=== PATIENT | female | born 1995 | race Caucasian/White ===

== ENCOUNTER 2021-05-01 19:32 | Emergency (ER) | payer OTHER ==
[2021-05-01] MEDS ORDERED: Sodium Chloride 0.9% 1,000 ML IV ONE (20:11)
[2021-05-01] MEDS ORDERED: diphenhydrAMINE 50 MG/ML SDV IVPUSH ONE (20:12)
[2021-05-01] MEDS ORDERED: Metoclopramide 10 MG/2 ML SDV IVPUSH ONE (20:12)
[2021-05-01] MEDS ORDERED: Ketorolac 30 MG/ML SDV IVPUSH ONE (20:12)
--- NOTE | 2021-05-01 20:18 | EDM.PDOC ---
ED HPI GENERAL MEDICAL PROBLEM - General Chief Complaint: Headache Stated Complaint: MIGRAINE,NAUSEAS Time Seen by Provider: 05/01/21 20:04 Source of Information: Reports: Patient History Limitations: Reports: No Limitations - History of Present Illness INITIAL COMMENTS - FREE TEXT/NARRATIVE: 25-year-old female presents the emergency department today with complaints of a migraine headache. Per the patient she does have history of migraines however she has never sought medical treatment for them. She states that approximately 4:00 today she developed a migraine headache. She felt it was coming on so did take some ibuprofen however this is not helped she also tried peppermint oil and ice packs. She states that this is the worst headache she has ever had in her life. Headache pain is located in her left frontal/parietal lobe. She states she does have photophobia and phonophobia. She also states she has some blurred vision associated with that. She denies any recent fever, chills, diarrhea or abdominal pain. She states she has been nauseated and has vomited once since being in the emergency department. She denies any recent cough shortness of breath or any other respiratory type symptoms. She is not a smoker. She does take oral contraceptives. 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 Headache Pain Score (Numeric/FACES): 10 - Related Data Allergies Allergy/AdvReac Type Severity Reaction Status Date / Time Sulfa (Sulfonamide Allergy Rash Verified 05/01/21 19:40 Antibiotics) Home Meds: Home Meds Acetaminophen [Tylenol Extra Strength] 500 mg PO Q4H PRN 04/21/19 [History] Levonorgestrel/Ethin.estradiol [Falmina-28 Tablet] 1 tab PO ASDIRECTED 05/01/21 [History] Multivitamin [One-Daily Multi-Vitamin] 1 each PO DAILY 05/01/21 [History] Past Medical History HEENT History: Reports: Impaired Vision Cardiovascular History: Reports: None Respiratory History: Reports: None Gastrointestinal History: Reports: Cholelithiasis, Other (See Below) Other Gastrointestinal History: nausea, vomiting Genitourinary History: Reports: Other (See Below) Other Genitourinary History: dysuria, urgency 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: Other (See Below) Other HUMAN RESOURCES OPERATIONS SPECIALIST History: abnormal pap, HX HPV Musculoskeletal History: Reports: None Neurological History: Reports: None Psychiatric History: Reports: None Endocrine/Metabolic History: Reports: None Hematologic History: Reports: None Immunologic History: Reports: None Oncologic (Cancer) History: Reports: None Dermatologic History: Reports: None - Infectious Disease History Infectious Disease History: Reports: Human Papilloma Virus (HPV) - Past Surgical History Head Surgeries/Procedures: Reports: None HEENT Surgical History: Reports: Adenoidectomy, Tonsillectomy Cardiovascular Surgical History: Reports: None Respiratory Surgical History: Reports: None GI Surgical History: Reports: None Female Surgical History: Reports: Section Endocrine Surgical History: Reports: None Neurological Surgical History: Reports: None Musculoskeletal Surgical History: Reports: None Oncologic Surgical History: Reports: None Dermatological Surgical History: Reports: None Social & Family History - Family History Family Medical History: No Pertinent Family History Cardiac: Reports: Other (See Below) Endocrine/Metabolic: Reports: Diabetes, Type I - Tobacco Use Tobacco Use Status *Q: Never Tobacco User - Caffeine Use Caffeine Use: Reports: Coffee, Soda - Recreational Drug Use Recreational Drug Use: No ED ROS GENERAL - Review of Systems Review Of Systems: Comprehensive ROS is negative, except as noted in HPI. - Physical Exam Exam: See Below Exam Limited By: No Limitations General Appearance: Alert, WD/WN, Moderate Distress Eye Exam: Bilateral Eye: EOMI, PERRL Ears: Normal External Exam, Hearing Grossly Normal Nose: Normal Inspection Throat/Mouth: Normal Inspection, Normal Lips, Normal Voice, No Airway Compromise Head Exam: Atraumatic, Normocephalic Neck: Normal Inspection, Supple Respiratory/Chest: No Respiratory Distress, Lungs Clear, Normal Breath Sounds, No Accessory Muscle Use, Chest Non-Tender Cardiovascular: Normal Peripheral Pulses, Regular Rate, Rhythm, No Edema, No Murmur GI/Abdominal: Normal Bowel Sounds, Soft, Non-Tender, No Distention (Female) Exam: Deferred Rectal (Female) Exam: Deferred Neuro Exam (Abbreviated): Alert, Oriented, CN II-XII Intact, Normal Cognition Back Exam: Normal Inspection Extremities: Normal Inspection Psychiatric: Normal Affect, Normal Mood Skin Exam: Warm, Dry, Intact, Normal Color, No Rash Course - Vital Signs Text/Narrative:: As stated above, patient presents with left-sided parietal/frontal lobe headache pain that started around 1600 today. She describes it as the worst headache she has ever had in her life despite having history of migraine headaches. Physical exam is unremarkable. Neuro exam is unremarkable. I have elected to order a CT scan of the head. Once this is completed we will give her a liter of normal saline wide open, 30 mg of Toradol, Benadryl and Reglan to see if we can abort the headache. I have also ordered for the patient be swabbed for Covid. Last Recorded V/S: Last Vital Signs Temp 97.8 F 05/01/21 19:45 Pulse 78 05/01/21 19:45 Resp 18 05/01/21 19:45 BP 129/83 05/01/21 19:45 Pulse Ox 99 05/01/21 19:45 - Orders/Labs/Meds Labs: Laboratory Tests 05/01/21 Range/Units 20:44 SARS-CoV-2 RNA ([facility]) Negative (NEGATIVE) Meds: Medications Discontinued Medications Generic Name Dose Route Start Last Admin Trade Name Cosmeq PRN Reason Stop Dose Admin Diphenhydramine HCl 25 mg 05/01/21 20:12 05/01/21 20:40 Diphenhydramine 50 Mg/Ml Sdv IVPUSH 05/01/21 20:13 25 mg ONETIME ONE Administration Sodium Chloride 1,000 mls @ 999 mls/hr 05/01/21 20:11 05/01/21 20:40 Normal Saline IV 05/01/21 21:11 999 mls/hr ONETIME ONE Administration Ketorolac Tromethamine 30 mg 05/01/21 20:12 05/01/21 20:42 Ketorolac 30 Mg/Ml Sdv IVPUSH 05/01/21 20:13 30 mg ONETIME ONE Administration Metoclopramide HCl 5 mg 05/01/21 20:12 05/01/21 20:41 Metoclopramide 10 Mg/2 Ml Sdv IVPUSH 05/01/21 20:13 5 mg ONETIME ONE Administration - Re-Assessments/Exams Free Text/Narrative Re-Assessment/Exam: 05/01/21 20:[address] scan of the head: 1. Nothing acute is identified on noncontrast head CT study 05/01/21 22:05 Patient is Covid negative. She reports that her headache is gone. We will discharge her to home. Departure - Departure Time of Disposition: 22:07 Disposition: Home, Self-Care 01 Condition: Good Clinical Impression: Migraine - Discharge Information Instructions: Migraine Headache, [id number] Referrals: Amelia Moncada MD [Primary Care Provider] - Forms: ED Department Discharge Additional Instructions: You were seen in the emergency department with complaints of migraine headache. You stated this was the worst headache you have ever had so we did do a CT scan of your head. This was negative. While in the emergency department you were given IV fluids and medications to abort the headache and this did seem to work. You were also swabbed for Covid and this was negative. Go home and rest in a dark quiet room. Drink plenty of fluids. Follow-up with your primary care provider as needed. Sepsis Event Note (ED) - Focused Exam Vital Signs: Vital Signs Temp Pulse Resp BP Pulse Ox 05/01/21 19:45 97.8 F 78 18 129/83 99
--- NOTE | 2021-05-01 20:40 | CT ---
Head CT Technique: Multiple axial sections through the brain were obtained. Intravenous contrast was utilized. Reconstructed coronal and sagittal images were obtained. Comparison: No prior intracranial imaging is available. Findings: Ventricles along with basal cisterns and sulci over the convexities are within normal limits for the patient's age. No abnormal parenchymal densities are seen. No evidence of intracranial hemorrhage is seen. No midline shift or mass-effect is seen. Bone window settings were reviewed. Visualized paranasal sinuses and mastoid sinuses show nothing acute. No acute calvarial abnormality is appreciated. Impression: 1. Nothing acute is identified on noncontrast head CT study. Diagnostic code #1
== END 2021-05-01 22:15 | disposition home or self-care (01) ==
LOC: JD.ED 19:32
DX: G43.909 Migraine, unspecified, not intractable, without status migrainosus (principal); K21.9 Gastro-esophageal reflux disease without esophagitis; Z88.2 Allergy status to sulfonamides; Z20.822 Contact with and (suspected) exposure to COVID-19; Z79.899 Other long term (current) drug therapy
CPT/HCPCS: 70450; 87635; 96374; 96375; 99284; J1200; J1885; J2765; J7030; U0002

== ENCOUNTER 2022-07-18 12:27 | Emergency (ER) | payer OTHER ==
[2022-07-18] MEDS ORDERED: Polyethylene Glycol 3350 Powder 17 GM Packet PO ONE (14:08)
[2022-07-18] MEDS ORDERED: Lidocaine 2% 11 ML Jelly Filled Syringe MUCMEM ONE (14:14)
[2022-07-18] MEDS ORDERED: Lidocaine 2% 11 ML Jelly Filled Syringe ONE (16:03)
== END 2022-07-18 17:00 | disposition home or self-care (01) ==
LOC: JD.ED 12:27
DX: O99.612 Diseases of the digestive system complicating pregnancy, second trimester (principal); K59.09 Other constipation; Z88.2 Allergy status to sulfonamides; Z3A.17 17 weeks gestation of pregnancy
CPT/HCPCS: 99283; A9270

== ENCOUNTER 2022-12-24 03:42 | Inpatient (IN) | payer OTHER ==
[2022-12-24] MEDS ORDERED: Sodium Chloride 0.9% 10 ML Syringe FLUSH PRN (13:21)
[2022-12-24] MEDS ORDERED: Nalbuphine 10 MG/0.5 ML Syringe IVPUSH PRN (13:21)
[2022-12-24] MEDS ORDERED: Ondansetron 4 MG/2 ML SDV IVPUSH PRN (13:21)
[2022-12-24] MEDS: Lactated Ringers 1,000 ML IV SCH (14:42)
[2022-12-24] MEDS: Oxytocin/Lactated Ringers 10 UNIT/1,000 ML BAG IV SCH (14:42)
[2022-12-24] MEDS: Sodium Chloride 0.9% 10 ML Syringe FLUSH SCH (22:03)
[2022-12-24] MEDS: hydrOXYzine HCl 50 MG Tab PO SCH (22:32)
[2022-12-25] MEDS: Lactated Ringers 1,000 ML IV SCH ×3 (10:10→18:16)
[2022-12-25] MEDS: Oxytocin/Lactated Ringers 10 UNIT/1,000 ML BAG IV SCH (10:10)
[2022-12-25] MEDS ORDERED: ePHEDrine 50 MG/ML SDV IVPUSH PRN (10:52)
[2022-12-25] MEDS ORDERED: diphenhydrAMINE 50 MG/ML SDV IVPUSH PRN (10:52)
[2022-12-25] MEDS: fentaNYL 100 MCG/2 ML SDV EPIDUR PRN (16:49)
[2022-12-25] MEDS: Bupivacaine/fentaNYL/NS 100 ML Bag EPIDUR PRN (17:03)
[2022-12-25] MEDS: Sodium Chloride 0.9% 10 ML Syringe FLUSH SCH (19:38)
[2022-12-26] MEDS: Bupivacaine/fentaNYL/NS 100 ML Bag EPIDUR PRN (00:02)
[2022-12-26] MEDS: Oxytocin/Lactated Ringers 10 UNIT/1,000 ML BAG IV SCH ×2 (00:02→03:50)
[2022-12-26] MEDS ORDERED: Dexmedetomidine 200 MCG/2 ML SDV ONE (00:20)
[2022-12-26] MEDS ORDERED: Lidocaine 2% with EPINEPHrine 1:200,000 20 ML SDV ONE (00:20)
[2022-12-26] MEDS ORDERED: Sodium Bicarbonate 8.4% 50 MEQ/50 ML SDV ONE (00:20)
[2022-12-26] MEDS: fentaNYL 100 MCG/2 ML SDV EPIDUR PRN (00:30)
[2022-12-26] MEDS: Sodium Chloride 0.9% 10 ML Syringe FLUSH SCH (00:32)
[2022-12-26] MEDS: hydrOXYzine HCl 50 MG Tab PO SCH (00:32)
[2022-12-26] MEDS ORDERED: Bupivacaine 0.5% 10 ML SDV ONE (00:40)
[2022-12-26] MEDS ORDERED: Lidocaine 1% 10 ML MDV ONE (04:00)
[2022-12-26] MEDS ORDERED: Witch Hazel Medicated Pads 40/Jar TOP PRN (04:20)
[2022-12-26] MEDS ORDERED: Benzocaine/Menthol 20%-0.5% Spray 78 GM Cannister TOP PRN (04:20)
[2022-12-26] MEDS ORDERED: Methylergonovine 0.2 MG/1 ML Amp IM PRN (04:20)
[2022-12-26] MEDS: Acetaminophen 325 MG Tab PO PRN ×2 (09:43→20:24)
[2022-12-26] MEDS ORDERED: Simethicone 80 MG Tab.Chew PO PRN (13:39)
[2022-12-26] MEDS ORDERED: Simethicone 80 MG Tab.Chew PO SCH (15:00)
[2022-12-26] MEDS: Ibuprofen 600 MG Tab PO PRN ×2 (16:27→20:22)
[2022-12-27] MEDS: Ibuprofen 600 MG Tab PO PRN (08:05)
[2022-12-27] MEDS: Acetaminophen 325 MG Tab PO PRN (08:06)
== END 2022-12-27 10:21 | disposition home or self-care (01) | DRG 807 ==
LOC: JD.OB 03:42 → OBSVTOIN 12-26 03:42 → JD.OB 12-26 03:43
PROVIDERS: ADMIT Family Medicine; ATTEND Family Medicine
PROC: 10E0XZZ Delivery of Products of Conception, External Approach (ICD-10-PCS; principal; 2022-12-26)
PROC: 0KQM0ZZ Repair Perineum Muscle, Open Approach (ICD-10-PCS; 2022-12-26)
PROC: 3E033VJ Introduction of Other Hormone into Peripheral Vein, Percutaneous Approach (ICD-10-PCS; 2022-12-26)
PROC: 3E0R3BZ Introduction of Anesthetic Agent into Spinal Canal, Percutaneous Approach (ICD-10-PCS; 2022-12-26)
PROC: 00HU33Z Insertion of Infusion Device into Spinal Canal, Percutaneous Approach (ICD-10-PCS; 2022-12-26)
PROC: 10907ZC Drainage of Amniotic Fluid, Therapeutic from Products of Conception, Via Natural or Artificial Opening (ICD-10-PCS; 2022-12-26)
PROC: 10H07YZ Insertion of Other Device into Products of Conception, Via Natural or Artificial Opening (ICD-10-PCS; 2022-12-26)
DX: O48.0 Post-term pregnancy (principal); O70.1 Second degree perineal laceration during delivery; Z37.0 Single live birth; Z3A.40 40 weeks gestation of pregnancy; Z88.2 Allergy status to sulfonamides
CPT/HCPCS: 36415; 51702; 59025; 59409; 85025; 86592; 86850; 86900; 86901; A9270-GY; C1726; J2210; J2300; J2405; J2590; J3010; J3490; J7120

== ENCOUNTER 2024-02-24 11:08 | Emergency (ER) | payer BC ==
[2024-02-24 12:19] LABS: BASOPHILS PERCENT AUTO 0.3 % (0.0-1.0); EOSINOPHILS ABSOLUTE AUTO 0.2 K/mm3 (0.0-0.4); EOSINOPHILS PERCENT AUTO 1.6 % (0.0-6.0); HEMATOCRIT 35.9 % (37.0-47.0); HEMOGLOBIN 12.8 gm/dl (12.0-16.0); IMMATURE GRAN ABSOLUTE AUTO 0.06 K/mm3 (0.00-0.05); IMMATURE GRAN PERCENT AUTO 0.5 % (0.0-0.4); MEAN CORPUSCULAR HEMOGLOBIN 31.6 pg (28.0-32.0); MEAN CORPUSCULAR HGB CONC 35.7 g/dl (32.0-36.0); MEAN CORPUSCULAR VOLUME 88.6 fl (83.0-99.0); MEAN PLATELET VOLUME 9.7 fl (9.4-12.3); MONOCYTES ABSOLUTE AUTO 0.6 K/mm3 (0.0-0.8); MONOCYTES PERCENT AUTO 5.1 % (0.0-8.0); NEUTROPHILS ABSOLUTE AUTO 8.3 K/mm3 (1.8-7.7); NEUTROPHILS PERCENT AUTO 74.5 % (41.0-71.0); PLATELET COUNT,PLT 272 K/mm3 (150-400); RED BLOOD CELL COUNT 4.05 M/mm3 (4.10-5.30); WHITE BLOOD CELL COUNT,WBC 11.16 K/mm3 (3.9-11.3)
[2024-02-24] MEDS: Dextrose 5%-Lactated Ringers 1,000 ML IV SCH (12:24)
[2024-02-24 12:37] LABS: A/G RATIO 0.7 (1-2); ALBUMIN 2.8 g/dl (3.4-5.0); ANION GAP 14.9 (5-15); BILIRUBIN TOTAL 0.3 mg/dL (0.2-1.0); BUN/CREATININE RATIO 12.9 (14-18); CALCIUM 8.8 mg/dL (8.5-10.1); CREATININE 0.7 mg/dL (0.55-1.02); EST CRCL DRUG DOSING (CG) 85.94 mL/min; POTASSIUM,K 3.9 mEq/L (3.5-5.1); PROTEIN TOTAL,TP 6.9 g/dl (6.4-8.2)
[2024-02-24 13:18] LABS: APPEARANCE,URINE CLEAR (Clear); BILIRUBIN,URINE NEGATIVE (Negative); COLOR,URINE YELLOW (Yellow); GLUCOSE,URINE 1+ (Negative); KETONES,URINE NEGATIVE (Negative); LEUKOCYTE ESTERASE,URINE NEGATIVE (Negative); NITRITE,URINE NEGATIVE (Negative); OCCULT BLOOD,URINE NEGATIVE (Negative); PROTEIN,URINE NEGATIVE (Negative); UROBILINOGEN,URINE 0.2 (0.2-1.0)
[2024-02-24 13:25] LABS: BACTERIA,URINE FEW /hpf (FEW); EPITHELIAL CELLS,URINE 0-5 /hpf (0-5); MUCUS,URINE FEW /hpf (FEW); RBC,URINE 0-5 /hpf (0-5); WBC,URINE 0-5 /hpf (0-5)
[2024-02-24] MEDS: Acetaminophen 325 MG Tab PO ONE (13:48)
== END 2024-02-24 14:17 | disposition home or self-care (01) ==
LOC: JD.ED 11:08
DX: O99.891 Other specified diseases and conditions complicating pregnancy (principal); R55 Syncope and collapse; R10.32 Left lower quadrant pain; Z3A.33 33 weeks gestation of pregnancy; Z86.16 Personal history of COVID-19; Z90.49 Acquired absence of other specified parts of digestive tract; Z88.2 Allergy status to sulfonamides
CPT/HCPCS: 36415; 80053; 81001; 85025; 96360; 99284; J7121; 99283; A9270-GY

== ENCOUNTER 2024-04-12 03:52 | Inpatient (IN) | payer BC ==
[~2024-04-12 03:52] MED LIST: Bupivacaine 0.25% 10 ML SDV ONE; Sodium Chloride 0.9% 10 ML SDV ONE
[2024-04-12] MEDS ORDERED: Nalbuphine 10 MG/ML Syringe IVPUSH PRN (04:15)
[2024-04-12] MEDS ORDERED: Acetaminophen 325 MG Tab PO PRN (04:15)
[2024-04-12] MEDS ORDERED: Lidocaine 1% 50 ML MDV INJECT PRN (04:15)
[2024-04-12] MEDS ORDERED: Oxytocin/0.9 % Sodium Chloride 30 UNIT/500 ML BAG IV SCH (04:15)
[2024-04-12] MEDS: Lactated Ringers 1,000 ML IV SCH (04:21)
[2024-04-12] MEDS ORDERED: Nalbuphine 10 MG/1 ML Vial IVPUSH PRN (04:29)
[2024-04-12 04:43] LABS: BASOPHILS PERCENT AUTO 0.4 % (0.0-1.0); EOSINOPHILS ABSOLUTE AUTO 0.2 K/mm3 (0.0-0.4); EOSINOPHILS PERCENT AUTO 1.4 % (0.0-6.0); HEMATOCRIT 36.6 % (37.0-47.0); HEMOGLOBIN 12.9 gm/dl (12.0-16.0); IMMATURE GRAN ABSOLUTE AUTO 0.04 K/mm3 (0.00-0.05); IMMATURE GRAN PERCENT AUTO 0.4 % (0.0-0.4); LYMPHOCYTES ABSOLUTE AUTO 2.7 K/mm3 (1.0-4.8); LYMPHOCYTES PERCENT AUTO 25.1 % (24.0-44.0); MEAN CORPUSCULAR HEMOGLOBIN 31.7 pg (28.0-32.0); MEAN CORPUSCULAR HGB CONC 35.2 g/dl (32.0-36.0); MEAN CORPUSCULAR VOLUME 89.9 fl (83.0-99.0); MEAN PLATELET VOLUME 9.9 fl (9.4-12.3); MONOCYTES ABSOLUTE AUTO 0.8 K/mm3 (0.0-0.8); MONOCYTES PERCENT AUTO 6.9 % (0.0-8.0); NEUTROPHILS ABSOLUTE AUTO 7.2 K/mm3 (1.8-7.7); NEUTROPHILS PERCENT AUTO 65.8 % (41.0-71.0); PLATELET COUNT,PLT 250 K/mm3 (150-400); RED BLOOD CELL COUNT 4.07 M/mm3 (4.10-5.30)
[2024-04-12] MEDS ORDERED: diphenhydrAMINE 50 MG/ML SDV IVPUSH PRN (04:54)
[2024-04-12] MEDS ORDERED: ePHEDrine 50 MG/ML SDV IVPUSH PRN (04:54)
[2024-04-12] MEDS: Bupivacaine/fentaNYL/NS 100 ML Bag EPIDUR PRN (05:06)
[2024-04-12] MEDS: fentaNYL 100 MCG/2 ML SDV EPIDUR PRN (05:07)
[2024-04-12] MEDS: Ondansetron 4 MG/2 ML SDV IVPUSH PRN (06:45)
[2024-04-12] MEDS: Oxytocin/0.9 % Sodium Chloride 30 UNIT/500 ML BAG IV SCH (06:55)
[2024-04-12] MEDS: Ibuprofen 600 MG Tab PO SCH (13:42)
[2024-04-12] MEDS: Benzocaine/Menthol 20%-0.5% Spray 78 GM Cannister TOP PRN (13:43)
[2024-04-12] MEDS: Witch Hazel Medicated Pads 40/Jar TOP PRN (13:44)
== END 2024-04-13 09:55 | disposition home or self-care (01) | DRG 560 ==
LOC: JD.OBCHECK 03:52 → JD.OB 03:54 → JD.OBCHECK 04:14 → JD.OB 04:15 → OBSVTOIN 08:40 → JD.OB 08:41
PROVIDERS: ADMIT Family Medicine; ATTEND Family Medicine
PROC: 10E0XZZ Delivery of Products of Conception, External Approach (ICD-10-PCS; principal; 2024-04-12)
PROC: 3E0P7VZ Introduction of Hormone into Female Reproductive, Via Natural or Artificial Opening (ICD-10-PCS; 2024-04-12)
PROC: 3E0R3BZ Introduction of Anesthetic Agent into Spinal Canal, Percutaneous Approach (ICD-10-PCS; 2024-04-12)
PROC: 00HU33Z Insertion of Infusion Device into Spinal Canal, Percutaneous Approach (ICD-10-PCS; 2024-04-12)
DX: O48.0 Post-term pregnancy (principal); O34.211 Maternal care for low transverse scar from previous cesarean delivery; Z37.0 Single live birth; Z3A.40 40 weeks gestation of pregnancy; O69.81X0 Labor and delivery complicated by cord around neck, without compression, not applicable or unspecified
CPT/HCPCS: 36415; 51702; 59025; 59409; 85025; 86592; 86850; 86900; 86901; A9270-GY; J0665; J2405; J3010; J3490; J7120; J7999

== ENCOUNTER 2024-05-13 10:07 | Emergency (ER) | payer BC ==
[2024-05-13] MEDS: Ketorolac 30 MG/ML SDV IVPUSH ONE (11:20)
[2024-05-13] MEDS: Metoclopramide 10 MG/2 ML SDV IVPUSH ONE (11:20)
[2024-05-13] MEDS: diphenhydrAMINE 50 MG/ML SDV IVPUSH ONE (11:20)
[2024-05-13] MEDS: Sodium Chloride 0.9% 10 ML Syringe FLUSH PRN (11:25)
[2024-05-13 11:36] LABS: BASOPHILS ABSOLUTE AUTO 0.1 K/mm3 (0.0-0.2); BASOPHILS PERCENT AUTO 0.6 % (0.0-1.0); EOSINOPHILS ABSOLUTE AUTO 0.3 K/mm3 (0.0-0.4); EOSINOPHILS PERCENT AUTO 3.3 % (0.0-6.0); HEMATOCRIT 40.8 % (37.0-47.0); HEMOGLOBIN 13.6 gm/dl (12.0-16.0); IMMATURE GRAN ABSOLUTE AUTO 0.03 K/mm3 (0.00-0.05); IMMATURE GRAN PERCENT AUTO 0.4 % (0.0-0.4); LYMPHOCYTES ABSOLUTE AUTO 1.7 K/mm3 (1.0-4.8); LYMPHOCYTES PERCENT AUTO 19.9 % (24.0-44.0); MEAN CORPUSCULAR HEMOGLOBIN 30.5 pg (28.0-32.0); MEAN CORPUSCULAR HGB CONC 33.3 g/dl (32.0-36.0); MEAN CORPUSCULAR VOLUME 91.5 fl (83.0-99.0); MONOCYTES ABSOLUTE AUTO 0.8 K/mm3 (0.0-0.8); NEUTROPHILS ABSOLUTE AUTO 5.6 K/mm3 (1.8-7.7); NEUTROPHILS PERCENT AUTO 66.8 % (41.0-71.0); PLATELET COUNT,PLT 307 K/mm3 (150-400); RED BLOOD CELL COUNT 4.46 M/mm3 (4.10-5.30); WHITE BLOOD CELL COUNT,WBC 8.43 K/mm3 (3.9-11.3)
[2024-05-13 11:59] LABS: A/G RATIO 1.1 (1-2); ALBUMIN 3.8 g/dl (3.4-5.0); BILIRUBIN TOTAL 0.4 mg/dL (0.2-1.0); BUN/CREATININE RATIO 12.5 (14-18); C-REACTIVE PROTEIN 0.22 mg/dL (<0.30); CALCIUM 9.1 mg/dL (8.5-10.1); CREATININE 0.8 mg/dL (0.55-1.02); EST CRCL DRUG DOSING (CG) 75.2 mL/min; PROTEIN TOTAL,TP 7.3 g/dl (6.4-8.2)
== END 2024-05-13 13:18 | disposition home or self-care (01) ==
LOC: JD.ED 10:07
DX: R51.9 Headache, unspecified (principal); M54.2 Cervicalgia; M54.9 Dorsalgia, unspecified; Z86.16 Personal history of COVID-19; Z90.49 Acquired absence of other specified parts of digestive tract; Z79.899 Other long term (current) drug therapy; Z88.2 Allergy status to sulfonamides
CPT/HCPCS: 36415; 70450; 80053; 85025; 86140; 96374; 96375; 99284; J1200; J1885; J2765; J3490